=== PATIENT | male | born 1940 | race Caucasian/White ===

== ENCOUNTER 2021-03-06 13:03 | Inpatient (IN) | payer MEDICARE, OTHER ==
[~2021-03-06] VITALS: Ht 172.7 cm; Wt 80.1 kg
[2021-03-06 14:35] LABS: HEMATOCRIT. 35.7 % (42.0-52.0); HEMOGLOBIN. 12.1 g/dL (14.0-18.0); MEAN CORPUSCULAR VOLUME 94.4 fL (80.0-94.0); MEAN PLATELET VOLUME 9.2 fl (7.4-10.4); PLATELET 77 x1000/uL (130-400); RED BLOOD CELL COUNT 3.79 mill/uL (4.7-6.1)
[2021-03-06 14:43] LABS: CHLORIDE 105 mEq/L (98-107)
[2021-03-06 14:49] LABS: INR 1.5; PARTIAL THROMBOPLASTIN TIME 32.8 sec (23.4-31.0); PROTHROMBIN TIME 15.3 sec (9.6-11.0)
[2021-03-06] MEDS ORDERED: SODIUM CHLORIDE 0.9% 1,000 ML IV ONE (15:30)
[2021-03-06 15:37] LABS: PLATELET ESTIMATE DECREASED
[2021-03-06] MEDS ORDERED: DEXTROSE 50% WATER 50ML SYRINGE IV ONE (16:15)
[2021-03-06 20:52] VITALS: BP 93/46
[2021-03-06 21:00] VITALS: BP 93/46
[2021-03-06] MEDS ORDERED: ACETAMINOPHEN 650MG/20.3ML UDC PO PRN (23:30)
[2021-03-07] VITALS: BP 98/54
[2021-03-07 04:00] VITALS: BP_SYST 87; BP_SYST 90; BP_DIAS 53; BP_DIAS 58
[2021-03-07 08:00] VITALS: BP 110/70
[2021-03-07] MEDS ORDERED: FUROSEMIDE 40MG/4ML VIAL IVP SCH (11:00)
[2021-03-07 12:00] VITALS: BP 86/51
[2021-03-07] MEDS ORDERED: LIDOCAINE HCL 1% 20ML VIAL (Pyxis) INJ ONE (15:20)
[2021-03-07] MEDS ORDERED: SODIUM BICARBONATE 4% (2.4MEQ) 5ML VIAL IV ONE (15:20)
[2021-03-07] MEDS ORDERED: SODIUM CHLORIDE 0.9% 500 ML IV ONE (15:45)
[2021-03-07 16:00] VITALS: BP 91/55
[2021-03-07] MEDS: MIDODRINE HCL 5MG TABLET PO SCH ×2 (16:07→17:26)
[2021-03-07 20:00] VITALS: BP 96/59
[2021-03-08] VITALS: BP 96/53
[2021-03-08 04:00] VITALS: BP 90/52
[2021-03-08 06:27] LABS: HEMATOCRIT. 34.6 % (42.0-52.0); HEMOGLOBIN. 11.8 g/dL (14.0-18.0); MEAN CORPUSCULAR HEMOGLOBIN 31.7 pg (28.0-32.0); MEAN PLATELET VOLUME 10.2 fl (7.4-10.4); PLATELET 67 x1000/uL (130-400); RED BLOOD CELL COUNT 3.72 mill/uL (4.7-6.1); RED CELL DISTRIBUTION WIDTH 19.2 % (11.6-14.6)
[2021-03-08] MEDS ORDERED: DEXT 10% WATER 1,000 ML IV SCH (08:15)
[2021-03-08 08:20] VITALS: BP 92/54
[2021-03-08] MEDS: MIDODRINE HCL 5MG TABLET PO SCH ×3 (09:29→17:00)
[2021-03-08] MEDS: DEXT 10% WATER 1,000 ML IV SCH (09:29)
[2021-03-08 12:22] VITALS: BP 88/50
[2021-03-08 16:10] LABS: PLATELET ESTIMATE DECREASED
[2021-03-08 16:25] VITALS: BP 95/63
[2021-03-08] MEDS: PANTOPRAZOLE SODIUM 40 MG/VIAL IV SCH (17:54)
[2021-03-08 20:00] VITALS: BP 91/56
[2021-03-08] MEDS: PHYTONADIONE 10MG/ML AMP SUBCUT SCH (20:40)
[2021-03-08] MEDS: BLOOD SUGAR DIAGNOSTIC STRIP TEST SCH (21:00)
[2021-03-09] VITALS (53 sets, daily range): BP systolic 70–137; BP diastolic 32–77
[2021-03-09] MEDS: BLOOD SUGAR DIAGNOSTIC STRIP TEST SCH ×4 (06:39→20:33)
[2021-03-09 06:42] LABS: BASOPHILS % 0.3 % (0.0-2.0); EOSINOPHILS % 0.8 % (0.0-5.0); HEMATOCRIT. 32.6 % (42.0-52.0); HEMOGLOBIN. 11.1 g/dL (14.0-18.0); LYMPHOCYTES % 16.7 % (20.0-50.0); MEAN CORPUSCULAR HEMOGLOBIN 31.9 pg (28.0-32.0); MEAN CORPUSCULAR VOLUME 93.3 fL (80.0-94.0); MEAN PLATELET VOLUME 9.9 fl (7.4-10.4); MONOCYTES % 8.1 % (2.0-8.0); NEUTROPHILS % 74.1 % (40.0-76.0); PLATELET 55 x1000/uL (130-400); RED CELL DISTRIBUTION WIDTH 19.3 % (11.6-14.6)
[2021-03-09 06:43] LABS: INR 1.4
[2021-03-09] MEDS: DEXT 10% WATER 1,000 ML IV SCH (08:26)
[2021-03-09] MEDS: MIDODRINE HCL 5MG TABLET PO SCH ×3 (08:50→16:43)
[2021-03-09] MEDS: PANTOPRAZOLE SODIUM 40 MG/VIAL IV SCH (08:54)
[2021-03-09] MEDS: PHYTONADIONE 10MG/ML AMP SUBCUT SCH (08:54)
[2021-03-09] MEDS ORDERED: SODIUM CHLORIDE 0.9% 500 ML IV ONE (09:00)
[2021-03-09] MEDS ORDERED: MIDODRINE HCL 5MG TABLET PO SCH (09:00)
[2021-03-09] MEDS ORDERED: NOREPINEPHRINE 8 MG in DEXT 5% WATER 242 ML IV NR (11:45)
[2021-03-09 13:42] LABS: CLARITY URINE CLOUDY (CLEAR); COLOR URINE DK YELLOW (YELLOW); KETONES URINE NEGATIVE (NEGATIVE); LEUKOCYTE ESTERASE URINE 1+ (NEGATIVE); NITRITE URINE NEGATIVE (NEGATIVE); OCCULT BLOOD URINE 3+ (NEGATIVE); PROTEIN URINE 1+ (NEGATIVE); SPECIFIC GRAVITY URINE 1.015 (1.005-1.030)
[2021-03-10] VITALS (94 sets, daily range): BP systolic 77–169; BP diastolic 16–132
[2021-03-10] MEDS: BLOOD SUGAR DIAGNOSTIC STRIP TEST SCH ×4 (06:10→21:00)
[2021-03-10] MEDS: MIDODRINE HCL 5MG TABLET PO SCH ×3 (08:53→17:00)
[2021-03-10] MEDS: PHYTONADIONE 10MG/ML AMP SUBCUT SCH (08:54)
[2021-03-10] MEDS: DEXT 10% WATER 1,000 ML IV SCH (10:50)
[2021-03-10] MEDS: CEFTRIAXONE 1,000 MG in DEXTROSE 5% WATER 50 ML IV SCH (10:50)
[2021-03-10] MEDS: PANTOPRAZOLE SODIUM 40 MG/VIAL IV SCH (10:50)
[2021-03-10 12:36] LABS: BASOPHILS % 0.1 % (0.0-2.0); EOSINOPHILS % 0.5 % (0.0-5.0); HEMATOCRIT. 35.3 % (42.0-52.0); HEMOGLOBIN. 12.1 g/dL (14.0-18.0); LYMPHOCYTES % 16.6 % (20.0-50.0); MEAN CORPUSCULAR HEMOGLOBIN 31.9 pg (28.0-32.0); MEAN CORPUSCULAR VOLUME 93.1 fL (80.0-94.0); MEAN PLATELET VOLUME 9.5 fl (7.4-10.4); MONOCYTES % 8.7 % (2.0-8.0); NEUTROPHILS % 74.1 % (40.0-76.0); PLATELET 52 x1000/uL (130-400); RED BLOOD CELL COUNT 3.79 mill/uL (4.7-6.1); RED CELL DISTRIBUTION WIDTH 18.9 % (11.6-14.6)
[2021-03-11] VITALS (98 sets, daily range): BP systolic 64–146; BP diastolic 21–87
[2021-03-11] MEDS: NOREPINEPHRINE 8 MG in DEXT 5% WATER 242 ML IV PRN (00:03)
[2021-03-11 04:37] LABS: BASOPHILS % 0.1 % (0.0-2.0); EOSINOPHILS % 0.3 % (0.0-5.0); HEMATOCRIT. 37.7 % (42.0-52.0); HEMOGLOBIN. 12.8 g/dL (14.0-18.0); LYMPHOCYTES % 13.3 % (20.0-50.0); MEAN CORPUSCULAR HEMOGLOBIN 31.3 pg (28.0-32.0); MEAN CORPUSCULAR VOLUME 92.5 fL (80.0-94.0); MEAN PLATELET VOLUME 9.5 fl (7.4-10.4); MONOCYTES % 5.1 % (2.0-8.0); NEUTROPHILS % 81.2 % (40.0-76.0); PLATELET 57 x1000/uL (130-400); RED BLOOD CELL COUNT 4.08 mill/uL (4.7-6.1); RED CELL DISTRIBUTION WIDTH 18.6 % (11.6-14.6)
[2021-03-11] MEDS: BLOOD SUGAR DIAGNOSTIC STRIP TEST SCH ×4 (06:37→21:00)
[2021-03-11] MEDS: PANTOPRAZOLE SODIUM 40 MG/VIAL IV SCH (09:25)
[2021-03-11] MEDS: CEFTRIAXONE 1,000 MG in DEXTROSE 5% WATER 50 ML IV SCH (09:26)
[2021-03-11] MEDS: MIDODRINE HCL 5MG TABLET PO SCH ×3 (09:26→18:17)
[2021-03-11] MEDS: DEXT 10% WATER 1,000 ML IV SCH (12:38)
[2021-03-12] VITALS (90 sets, daily range): BP systolic 77–141; BP diastolic 28–103
[2021-03-12] MEDS: BLOOD SUGAR DIAGNOSTIC STRIP TEST SCH ×3 (06:04→21:00)
[2021-03-12] MEDS: MIDODRINE HCL 5MG TABLET PO SCH ×3 (09:00→17:00)
[2021-03-12] MEDS: PANTOPRAZOLE SODIUM 40 MG/VIAL IV SCH (09:13)
[2021-03-12] MEDS: CEFTRIAXONE 1,000 MG in DEXTROSE 5% WATER 50 ML IV SCH (09:14)
[2021-03-12] MEDS: DEXT 10% WATER 1,000 ML IV SCH (11:00)
[2021-03-13] VITALS (98 sets, daily range): BP systolic 46–184; BP diastolic 15–125
[2021-03-13] MEDS: BLOOD SUGAR DIAGNOSTIC STRIP TEST SCH ×4 (06:30→21:00)
[2021-03-13] MEDS: NOREPINEPHRINE 8 MG in DEXT 5% WATER 242 ML IV PRN (07:52)
[2021-03-13] MEDS: PANTOPRAZOLE SODIUM 40 MG/VIAL IV SCH (08:42)
[2021-03-13] MEDS: DEXT 10% WATER 1,000 ML IV SCH (08:43)
[2021-03-13] MEDS: MIDODRINE HCL 5MG TABLET PO SCH ×3 (08:44→16:34)
[2021-03-13] MEDS: CEFTRIAXONE 1,000 MG in DEXTROSE 5% WATER 50 ML IV SCH (09:43)
[2021-03-13] MEDS ORDERED: MORPHINE SULFATE 2 MG/ML CPJ (NOT FOR IM USE) IV PRN (18:45)
[2021-03-14] VITALS (98 sets, daily range): BP systolic 35–169; BP diastolic 24–124
[2021-03-14] MEDS: NOREPINEPHRINE 8 MG in DEXT 5% WATER 242 ML IV PRN ×3 (01:17→17:48)
[2021-03-14] MEDS: MIDODRINE HCL 5MG TABLET PO SCH ×3 (08:48→16:28)
[2021-03-14] MEDS: DEXT 10% WATER 1,000 ML IV SCH (08:49)
[2021-03-14] MEDS: PANTOPRAZOLE SODIUM 40 MG/VIAL IV SCH (08:49)
[2021-03-14] MEDS: CEFTRIAXONE 1,000 MG in DEXTROSE 5% WATER 50 ML IV SCH (10:24)
[2021-03-14] MEDS: BLOOD SUGAR DIAGNOSTIC STRIP TEST SCH ×3 (10:56→21:00)
[2021-03-14 13:53] LABS: EOSINOPHILS % 0.4 % (0.0-5.0); HEMATOCRIT. 35.3 % (42.0-52.0); HEMOGLOBIN. 12.1 g/dL (14.0-18.0); LYMPHOCYTES % 12.1 % (20.0-50.0); MEAN CORPUSCULAR HEMOGLOBIN 31.4 pg (28.0-32.0); MEAN CORPUSCULAR VOLUME 91.3 fL (80.0-94.0); MEAN PLATELET VOLUME 10.5 fl (7.4-10.4); MONOCYTES % 5.1 % (2.0-8.0); NEUTROPHILS % 82.4 % (40.0-76.0); RED BLOOD CELL COUNT 3.86 mill/uL (4.7-6.1); RED CELL DISTRIBUTION WIDTH 18.6 % (11.6-14.6)
[2021-03-15] VITALS (105 sets, daily range): BP systolic 49–206; BP diastolic 19–151
[2021-03-15] MEDS: PANTOPRAZOLE SODIUM 40 MG/VIAL IV SCH (08:35)
[2021-03-15] MEDS: DEXT 10% WATER 1,000 ML IV SCH (08:35)
[2021-03-15] MEDS: MIDODRINE HCL 5MG TABLET PO SCH ×3 (08:35→17:00)
[2021-03-15] MEDS: NOREPINEPHRINE 8 MG in DEXT 5% WATER 242 ML IV PRN ×2 (09:31→17:41)
[2021-03-15] MEDS: BLOOD SUGAR DIAGNOSTIC STRIP TEST SCH ×3 (11:14→21:08)
[2021-03-15 14:06] LABS: PLATELET 30 x1000/uL (130-400)
[2021-03-16] VITALS (59 sets, daily range): BP systolic 43–195; BP diastolic 15–115
[2021-03-16] MEDS: NOREPINEPHRINE 8 MG in DEXT 5% WATER 242 ML IV PRN (00:59)
[2021-03-16] MEDS: DEXT 10% WATER 1,000 ML IV SCH (06:15)
[2021-03-16] MEDS: BLOOD SUGAR DIAGNOSTIC STRIP TEST SCH (06:45)
[2021-03-16] MEDS: MIDODRINE HCL 5MG TABLET PO SCH (09:00)
[2021-03-16] MEDS: PANTOPRAZOLE SODIUM 40 MG/VIAL IV SCH (09:08)
[2021-03-16] MEDS ORDERED: LORAZEPAM 2MG/ML CPJ IV PRN (11:30)
[2021-03-16] MEDS: MORPHINE SULFATE 2 MG/ML CPJ (NOT FOR IM USE) IV PRN ×2 (11:46→16:58)
== END 2021-03-16 18:15 | DRG 435 ==
LOC: ER 13:03 → 5WST 17:48 → ENRESERV 19:33 → 5WST 21:40 → MICUSO 03-09 11:50 → MICUNO 03-09 17:44
PROVIDERS: ADMIT Internal Medicine Pulmonary Disease; ATTEND Internal Medicine Pulmonary Disease
PROC: 0W9G3ZZ Drainage of Peritoneal Cavity, Percutaneous Approach (ICD-10-PCS; principal; 2021-03-07)
DX: C22.9 Malignant neoplasm of liver, not specified as primary or secondary (principal); N17.0 Acute kidney failure with tubular necrosis; E43 Unspecified severe protein-calorie malnutrition; R18.8 Other ascites; E87.1 Hypo-osmolality and hyponatremia; G93.40 Encephalopathy, unspecified; D68.9 Coagulation defect, unspecified; N39.0 Urinary tract infection, site not specified; C34.90 Malignant neoplasm of unspecified part of unspecified bronchus or lung; I12.9 Hypertensive chronic kidney disease with stage 1 through stage 4 chronic kidney disease, or unspecified chronic kidney disease; E16.2 Hypoglycemia, unspecified; D69.6 Thrombocytopenia, unspecified; F03.90 Unspecified dementia, unspecified severity, without behavioral disturbance, psychotic disturbance, mood disturbance, and anxiety; K74.60 Unspecified cirrhosis of liver; N18.9 Chronic kidney disease, unspecified; I95.9 Hypotension, unspecified; R33.9 Retention of urine, unspecified; D53.9 Nutritional anemia, unspecified; K80.20 Calculus of gallbladder without cholecystitis without obstruction; E80.6 Other disorders of bilirubin metabolism; N20.0 Calculus of kidney; R62.7 Adult failure to thrive; E78.5 Hyperlipidemia, unspecified; Z20.822 Contact with and (suspected) exposure to COVID-19; Z66 Do not resuscitate; Z51.5 Encounter for palliative care; Z68.26 Body mass index [BMI] 26.0-26.9, adult
CPT/HCPCS: 36415; 49083; 71045; 73080; 74176; 76700; 80048; 80053; 81003; 82105; 82140; 82378; 82962; 83735; 83880; 84484; 85025; 87426; 88108; 88312; 92610; 93005; 93970; 97162; 99285; C1893; C9113; J0696; J1940; J2060; J2270; J3430; J3490; J7030; J7040; J7060; A4315